=== PATIENT | male | born 1945 | race Caucasian/White ===

== ENCOUNTER 2019-05-29 23:53 | Emergency (ER) | payer OTHER ==
[2019-05-30] MEDS ORDERED: Sodium Chloride 0.9% 1,000 ML IV ONE (00:25)
[2019-05-30] MEDS: Sodium Chloride 0.9% 10 ML Syringe FLUSH PRN ×3 (00:30→01:14)
--- NOTE | 2019-05-30 00:31 | EDM.PDOC ---
ED HPI GENERAL MEDICAL PROBLEM - General Chief Complaint: General Stated Complaint: LEFT FLANK/ABDOMEN PAIN Time Seen by Provider: 05/30/19 00:24 Source of Information: Reports: Patient History Limitations: Reports: No Limitations - History of Present Illness INITIAL COMMENTS - FREE TEXT/NARRATIVE: Patient is a 74-year-old gentleman who presents to the emergency department this evening via private vehicle with a complaint of left flank and lower abdominal pain. Patient states discomfort began 24 hours ago, he was able to sleep last night but pain increased at 7 p.m. this evening and worsened. He decided to present to the emergency department. Patient does have a history of renal calculi about 7-8 years ago. Patient denies chest pain, fever, shortness of breath, upper respiratory symptoms, nausea, vomiting, diarrhea, bloody stool , testicular pain, or any trauma. 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 Onset: Sudden Onset Date: 05/29/19 Onset Time: 00:00 Duration: Hour(s): Location: Reports: Abdomen, Back Quality: Reports: Sharp Severity: Mild Improves with: Reports: None Worsens with: Reports: None Context: Denies: Lifting, Trauma Associated Symptoms: Reports: No Other Symptoms. Denies: Chest Pain, Fever/ Chills, Nausea/Vomiting, Shortness of Breath LEFT FLANK/LOWER ABDOMEN Pain Score (Numeric/FACES): 6 - Related Data Allergies Allergy/AdvReac Type Severity Reaction Status Date / Time procaine [From Novocain] Allergy Cannot Verified 05/29/19 23:57 Remember ED ROS GENERAL - Review of Systems Review Of Systems: Comprehensive ROS is negative, except as noted in HPI. Constitutional: Reports: No Symptoms HEENT: Reports: No Symptoms Respiratory: Reports: No Symptoms Cardiovascular: Reports: No Symptoms Endocrine: Reports: No Symptoms GI/Abdominal: Reports: Abdominal Pain. Denies: Black Stool, Bloody Stool, Constipation, Diarrhea, Nausea, Vomiting : Reports: Flank Pain. Denies: Dysuria, Hematuria, Urinary Retention Musculoskeletal: Reports: No Symptoms Skin: Reports: No Symptoms Neurological: Reports: No Symptoms Psychiatric: Reports: No Symptoms Hematologic/Lymphatic: Reports: No Symptoms Immunologic: Reports: No Symptoms ED EXAM, GENERAL - Physical Exam Exam: See Below Exam Limited By: No Limitations General Appearance: Alert, No Apparent Distress Eye Exam: Bilateral Eye: Normal Inspection Throat/Mouth: Normal Inspection, Normal Oropharynx, No Airway Compromise Head: Atraumatic, Normocephalic Neck: Normal Inspection Respiratory/Chest: No Respiratory Distress, Lungs Clear, Normal Breath Sounds, No Accessory Muscle Use, Chest Non-Tender Cardiovascular: Regular Rate, Rhythm, No Murmur GI/Abdominal: Normal Bowel Sounds, Soft, No Organomegaly, No Distention, No Abnormal Bruit, No Mass, Tender (Minimally tender suprapubic). No: Abnormal Bowel Sounds Back Exam: CVA Tenderness (L). No: CVA Tenderness (R), Paraspinal Tenderness Extremities: Normal Inspection, No Pedal Edema Neurological: Alert, Oriented, Normal Cognition Psychiatric: Normal Affect, Normal Mood Skin Exam: Warm, Dry, Intact, Normal Color, No Rash Lymphatic: No Adenopathy Course - Vital Signs Last Recorded V/S: Last Vital Signs Temp 97.2 F 05/30/19 00:04 Pulse 70 05/30/19 00:53 Resp 20 05/30/19 00:04 BP 182/72 H 05/30/19 00:53 Pulse Ox 95 05/30/19 00:04 - Orders/Labs/Meds Orders: Active Orders 24 hr Category Date Time Status Peripheral IV Care [RC] . DIRECTED Care 05/30/19 00:22 Active Abdomen Pelvis wo Cont [CT] Stat Exams 05/30/19 00:20 Ordered Sodium Chloride 0.9% @ 999 MLS/HR (1000ml) Med 05/30/19 00:25 Ordered Sodium Chloride 0.9% [Normal Saline] 1,000 ml IV .BOLUS Sodium Chloride 0.9% [Saline Flush] Med 05/30/19 00:22 Active 10 ml FLUSH Q8HR PRN Peripheral IV Insertion Adult [OM.PC] Routine Oth 05/30/19 00:05 Ordered Medication Orders Sodium Chloride (Normal Saline) 1,000 mls @ 999 mls/hr IV .BOLUS ONE Stop: 05/30/19 01:25 Last Admin: 05/30/19 00:29 Dose: 999 mls/hr Sodium Chloride (Saline Flush) 10 ml FLUSH Q8HR PRN PRN Reason: keep vein open Last Admin: 05/30/19 01:14 Dose: 10 ml Admin: 05/30/19 01:02 Dose: 10 ml Admin: 05/30/19 00:30 Dose: 10 ml Labs: Laboratory Tests 05/30/19 05/30/19 05/30/19 Range/Units 00:10 00:10 00:52 WBC 9.56 (5.00-10.00) 10^3/uL RBC 4.71 (4.50-6.00) 10^6/uL Hgb 14.9 (13.0-17.0) g/dL Hct 43.0 (40.0-52.0) % MCV 91.3 (82.0-92.0) fL MCH 31.6 H (27.0-31.0) pg MCHC 34.7 (32.0-36.0) g/dL RDW 13.4 (11.5-14.5) % Plt Count 235 (150-400) 10^3/uL MPV 9.3 (7.4-10.4) fL Immature Gran % (Auto) 0.1 (0.0-5.0) % Neut % (Auto) 78.2 H (50.0-70.0) % Lymph % (Auto) 15.3 L (20.0-40.0) % [place] % (Auto) 5.2 (2.0-8.0) % Eos % (Auto) 0.9 L (1.0-3.0) % Baso % (Auto) 0.3 (0.0-1.0) % Immature Gran # (Auto) 0.01 (0.00-0.50) 10^3/uL Neut # (Auto) 7.47 H (2.50-7.00) 10^3/uL Lymph # (Auto) 1.46 (1.00-4.00) 10^3/uL [place] # (Auto) 0.50 (0.10-0.80) 10^3/uL Eos # (Auto) 0.09 L (0.10-0.30) 10^3/uL Baso # (Auto) 0.03 (0.00-0.10) 10^3/uL Sodium 144 (136-145) mmol/L Potassium 4.1 (3.3-5.3) mmol/L Chloride 104 (98-115) mmol/L Carbon Dioxide 26.7 (21.0-32.0) mmol/L Anion Gap 17.4 H (5-15) mmol/L BUN 25 (6-25) mg/dL Creatinine 1.58 H (0.51-1.17) mg/dL Est Cr Clr Drug Dosing 45.70 mL/min Estimated GFR (MDRD) 43 mL/min Glucose 135 H (75 - 99) mg/dL Calcium 9.6 (8.7-10.3) mg/dL Total Bilirubin 0.7 (0.2-1.0) mg/dL AST 42 H (15-37) U/L ALT 72 (12-78) U/L Alkaline Phosphatase 79 (46-116) IU/L Total Protein 7.6 (6.4-8.2) g/dL Albumin 4.33 (3.00-4.80) g/dL Specimen Type . Urine Color Light yellow (YELLOW) Urine Appearance Clear (CLEAR) Urine pH 7.5 (5.0-9.0) Ur Specific [place] 1.020 (1.005-1.030) Urine Protein Negative (NEGATIVE) mg/dL Urine Glucose (UA) Negative (NEGATIVE) mg/dL Urine Ketones Negative (NEGATIVE) mg/dL Urine Occult Blood Large H (NEGATIVE) Urine Nitrite Negative (NEGATIVE) Urine Bilirubin Negative (NEGATIVE) Urine Urobilinogen 0.2 (0.2-1.0) E.U./dL Ur Leukocyte Esterase Negative (NEGATIVE) Urine RBC 75-100 H (0-5) /HPF Urine WBC 0-5 (0-5) /HPF Ur Epithelial Cells Rare /LPF Urine Bacteria Not seen (NONE TO FEW) /HPF Meds: Medications Generic Name Dose Route Start Last Admin Trade Name Eva PRN Reason Stop Dose Admin Sodium Chloride 1,000 mls @ 999 mls/hr 05/30/19 00:25 05/30/19 00:29 Normal Saline IV 05/30/19 01:25 999 mls/hr .BOLUS ONE Administration Sodium Chloride 10 ml 05/30/19 00:22 05/30/19 01:14 Saline Flush FLUSH 10 ml Q8HR PRN Administration keep vein open Discontinued Medications Generic Name Dose Route Start Last Admin Trade Name Freq PRN Reason Stop Dose Admin Ketorolac Tromethamine 30 mg 05/30/19 01:10 05/30/19 01:14 Toradol IVPUSH 05/30/19 01:11 30 mg ONETIME ONE Administration Ondansetron HCl 4 mg 05/30/19 00:58 05/30/19 01:02 Zofran IVPUSH 05/30/19 00:59 4 mg ONETIME ONE Administration - Radiology Interpretation Free Text/Narrative:: CT abdomen and pelvis without contrast shows proximal left ureteral 4 x 5 mm calculus, moderate left hydronephrosis. - Re-Assessments/Exams Free Text/Narrative Re-Assessment/Exam: 05/30/19 01:14 Patient afebrile, vital signs stable, pain relieved. Patient doctors at [facility] and is requesting to present there today to follow up with urology. Departure - Departure Time of Disposition: 01:16 Disposition: Home, Self-Care 01 Condition: Good Clinical Impression: Renal calculi Hydronephrosis Qualifiers: Hydronephrosis type: unspecified Qualified Code(s): N13.30 - Unspecified hydronephrosis - Discharge Information Instructions: Kidney Stones, [id number], Hydronephrosis Forms: ED Department Discharge Additional Instructions: Follow-up at the [facility] this morning as you requested. If unable to follow-up the [facility] return to emergency department for reevaluation. Sepsis Event Note - Evaluation Sepsis Screening Result: No Definite Risk - Focused Exam Vital Signs: Vital Signs Temp Pulse Resp BP Pulse Ox 05/30/19 00:53 70 182/72 H 05/30/19 00:34 75 189/84 H 05/30/19 00:04 97.2 F 73 20 179/83 H 95 Date Exam was Performed: 05/30/19 Time Exam was Performed: 01:16 - My Orders Last 24 Hours: My Active Orders 05/30/19 00:05 Peripheral IV Insertion Adult [OM.PC] Routine 05/30/19 00:20 Abdomen Pelvis wo Cont [CT] Stat 05/30/19 00:22 Peripheral IV Care [RC] . DIRECTED Sodium Chloride 0.9% [Saline Flush] 10 ml FLUSH Q8HR PRN 05/30/19 00:25 Sodium Chloride 0.9% @ 999 MLS/HR (1000ml) Sodium Chloride 0.9% [Normal Saline] 1,000 ml IV .BOLUS - Assessment/Plan Last 24 Hours: My Active Orders 05/30/19 00:05 Peripheral IV Insertion Adult [OM.PC] Routine 05/30/19 00:20 Abdomen Pelvis wo Cont [CT] Stat 05/30/19 00:22 Peripheral IV Care [RC] . DIRECTED Sodium Chloride 0.9% [Saline Flush] 10 ml FLUSH Q8HR PRN 05/30/19 00:25 Sodium Chloride 0.9% @ 999 MLS/HR (1000ml) Sodium Chloride 0.9% [Normal Saline] 1,000 ml IV .BOLUS Assessment:: Kidney stone Plan: Follow-up at the [facility] in [place] today as discussed.
[2019-05-30] MEDS ORDERED: Ondansetron 4 MG/2 ML SDV IVPUSH ONE (00:58)
[2019-05-30 01:02] LABS: ANION GAP 17.4 mmol/L (5-15)
[2019-05-30] MEDS ORDERED: Ketorolac 30 MG/ML SDV IVPUSH ONE (01:10)
--- NOTE | 2019-05-30 08:15 | CT ---
[id number] CT/CT Abdomen Pelvis WO IV EXAM: CT Abdomen Pelvis WO IV CLINICAL DATA: ABDOMEN/FLANK PAIN COMPARISON STUDY: None. FINDINGS: 3 mm calculus in the proximal left ureter (series 2 image 96 and series 4 image 59). Calculus results in mild to moderate upstream hydronephrosis and perinephric edema. Remainder of the left ureter is unremarkable. Multiple additional nonobstructing bilateral renal calculi measuring up to 3-4 mm. Overall stone burden is mild. No right-sided hydroureteronephrosis. Urinary bladder is unremarkable. Prostate gland is enlarged, exerting mass effect on the bladder base. Mesenteric edema in the upper abdomen extending left of midline with numerous visualized lymph nodes. One of these nodes appears partially calcified measuring approximately 14 x 13 x 12 mm. None of the other nodes are enlarged by size criteria. Liver, gallbladder, spleen, pancreas, and adrenal glands are unremarkable. No small bowel obstruction or inflammation. No colitis or diverticulitis. Appendix is normal. No free fluid or fluid collections. No pneumoperitoneum. Thoracolumbar spondylosis, including advanced L5-S1 degenerative disc disease. 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 IMPRESSION: 3 mm obstructing proximal left ureteral calculus with mild to moderate upstream hydroureteronephrosis. Additional nonobstructing bilateral renal calculi. Mesenteric edema in the upper abdomen with numerous small visualized lymph nodes, in addition to a mildly enlarged and calcified lymph node in the upper abdomen. Findings are nonspecific. Correlation with any prior imaging would be of benefit if available. Brayden Hernandez MD 05/30/19 0813 Thank you for allowing us to participate in the care of your patient.
== END 2019-05-30 01:33 | disposition home or self-care (01) ==
LOC: KA.ED 23:53
DX: N13.2 Hydronephrosis with renal and ureteral calculous obstruction (principal); Z88.8 Allergy status to other drugs, medicaments and biological substances
CPT/HCPCS: 74176; 80053; 81001; 85025; 96361; 96374; 96375; 99283; 99284-25; J1885; J2405; J7030

== ENCOUNTER 2019-11-23 20:16 | Emergency (ER) | payer MEDICARE, OTHER ==
[2019-11-23] MEDS ORDERED: Ketorolac 30 MG/ML SDV IVPUSH ONE (20:34)
[2019-11-23] MEDS ORDERED: Ketorolac 30 MG/ML SDV IM ONE (20:34)
[2019-11-23] MEDS ORDERED: Sodium Chloride 0.9% 1,000 ML IV ONE (20:34)
[2019-11-23] MEDS ORDERED: Sodium Chloride 0.9% 1,000 ML ONE (20:35)
[2019-11-23] MEDS ORDERED: Ketorolac 30 MG/ML SDV ONE (20:36)
--- NOTE | 2019-11-23 20:37 | EDM.PDOC ---
ED HPI GENERAL MEDICAL PROBLEM - General Chief Complaint: Flank Pain Stated Complaint: RIGHT FLANK PAIN Time Seen by Provider: 11/23/19 20:32 Source of Information: Reports: Patient History Limitations: Reports: No Limitations - History of Present Illness INITIAL COMMENTS - FREE TEXT/NARRATIVE: Roughly 1400 hrs. today, developed mild discomfort associated to his previous renal lithiasis. States this is steadily increased since then with no improvement with urination. Bowel movements normal today. Urine may be slightly increased due to intake. Denies any shortness of breath or chest pain. Denies any edema or claudication. Very similar to previous event last May although he states pain is may be slightly worse. Does not radiate through to the bladder nor groin but states general discomfort abdominally/pelvis. Onset: Today Duration: Hour(s): Location: Reports: Radiates to (Abdomen) Quality: Reports: Same as Previous Episode (Get out of your way) Severity: Moderate (How you been good) Improves with: Reports: Movement (All) Context: Reports: Other Associated Symptoms: Reports: Nausea/Vomiting Right Flank Pain Score (Numeric/FACES): 8 - Related Data Allergies Allergy/AdvReac Type Severity Reaction Status Date / Time procaine [From Novocain] Allergy Cannot Verified 11/23/19 20:22 Remember Past Medical History HEENT History: Reports: Impaired Vision Cardiovascular History: Reports: None Respiratory History: Reports: None Gastrointestinal History: Reports: None Genitourinary History: Reports: BPH, Renal Calculus, Other (See Below) (May 2019, referred [facility] from the OR for snaring and stenting of a 3 mm left ureteral calculus.) Musculoskeletal History: Reports: Gout Neurological History: Reports: Concussion Psychiatric History: Reports: None Endocrine/Metabolic History: Reports: None Oncologic (Cancer) History: Reports: Prostate Dermatologic History: Reports: Other (See Below) Other Dermatologic History: "Rash on stomach thats been there ten years" - Past Surgical History HEENT Surgical History: Reports: None Cardiovascular Surgical History: Reports: None Respiratory Surgical History: Reports: None GI Surgical History: Reports: None Male Surgical History: Reports: Prostate Biopsy Musculoskeletal Surgical History: Reports: None Social & Family History - Family History Family Medical History: Noncontributory - Caffeine Use Caffeine Use: Reports: None ED ROS GENERAL - Review of Systems Review Of Systems: Comprehensive ROS is negative, except as noted in HPI. ED EXAM, GENERAL - Physical Exam Exam: See Below Free Text/Narrative:: There is minimal, at least not sharp, pain to percussion of the flank region. Does not cause radiation anteriorly. General Appearance: Alert, WD/WN, Moderate Distress Ears: Normal External Exam, Normal Canal, Hearing Grossly Normal Head: Atraumatic Neck: Normal Inspection, Supple, Non-Tender, Full Range of Motion Respiratory/Chest: No Respiratory Distress, Lungs Clear, Normal Breath Sounds, No Accessory Muscle Use, Chest Non-Tender Cardiovascular: Normal Peripheral Pulses, Regular Rate, Rhythm, No Edema, No Gallop, No Murmur GI/Abdominal: Normal Bowel Sounds, Soft, Non-Tender, No Distention, No Mass (Male) Exam: Deferred Rectal (Males) Exam: Deferred Back Exam: Normal Inspection, Full Range of Motion Extremities: Normal Inspection, Normal Range of Motion, Non-Tender, No Pedal Edema, Normal Capillary Refill Neurological: Alert, Oriented, CN II-XII Intact, Normal Cognition, Normal Gait, Normal Reflexes, No Motor/Sensory Deficits Psychiatric: Normal Affect, Normal Mood Skin Exam: Warm, Dry, Intact, Normal Color, No Rash, Diaphoretic (Mildly diaphoretic, core, none exhibited to extremities) Course - Vital Signs Last Recorded V/S: Last Vital Signs Temp 36.2 C 11/23/19 20:30 Pulse 75 11/23/19 20:30 Resp 20 11/23/19 20:30 BP 187/89 H 11/23/19 20:30 Pulse Ox 95 11/23/19 20:30 - Orders/Labs/Meds Orders: Active Orders 24 hr Category Date Time Status Abdomen Pelvis wo Cont [CT] Stat Exams 11/23/19 20:39 Ordered Acetaminophen/HYDROcodone [[place] 325-5 MG] Med 11/23/19 21:57 Ordered 2 tab PO Q6H PRN Ondansetron [Zofran ODT] Med 11/23/19 21:59 Once 4 mg PO ONETIME ONE Medication Orders Hydrocodone Bitart/Acetaminophen ([place] 325-5 Mg) 2 tab PO Q6H PRN PRN Reason: Pain (moderate 4-6) Ondansetron HCl (Zofran Odt) 4 mg PO ONETIME ONE Stop: 11/23/19 22:00 Labs: Laboratory Tests 11/23/19 11/23/19 11/23/19 Range/Units 20:33 20:33 21:15 WBC 10.60 H (5.00-10.00) 10^3/uL RBC 4.44 L (4.50-6.00) 10^6/uL Hgb 14.2 (13.0-17.0) g/dL Hct 40.9 (40.0-52.0) % MCV 92.1 H (82.0-92.0) fL MCH 32.0 H (27.0-31.0) pg MCHC 34.7 (32.0-36.0) g/dL RDW 13.0 (11.5-14.5) % Plt Count 232 (150-400) 10^3/uL MPV 9.3 (7.4-10.4) fL Immature Gran % (Auto) 0.1 (0.0-5.0) % Neut % (Auto) 77.6 H (50.0-70.0) % Lymph % (Auto) 17.1 L (20.0-40.0) % [place] % (Auto) 4.8 (2.0-8.0) % Eos % (Auto) 0.2 L (1.0-3.0) % Baso % (Auto) 0.2 (0.0-1.0) % Neut # (Auto) 8.23 H (2.50-7.00) 10^3/uL Lymph # (Auto) 1.81 (1.00-4.00) 10^3/uL [place] # (Auto) 0.51 (0.10-0.80) 10^3/uL Eos # (Auto) 0.02 L (0.10-0.30) 10^3/uL Baso # (Auto) 0.02 (0.00-0.10) 10^3/uL Immature Gran # (Auto) 0.01 (0.00-0.50) 10^3/uL Sodium 139 (136-145) mmol/L Potassium 3.9 (3.3-5.3) mmol/L Chloride 103 (98-115) mmol/L Carbon Dioxide 22.2 (21.0-32.0) mmol/L Anion Gap 17.7 H (5-15) mmol/L BUN 26 H (6-25) mg/dL Creatinine 1.67 H (0.51-1.17) mg/dL Est Cr Clr Drug Dosing 42.60 mL/min Estimated GFR (MDRD) 41 mL/min Glucose 150 H (75 - 99) mg/dL Calcium 9.4 (8.7-10.3) mg/dL Specimen Type Urincc Urine Color Yellow (YELLOW) Urine Appearance Clear (CLEAR) Urine pH 6.0 (5.0-9.0) Ur Specific [place] 1.025 (1.005-1.030) Urine Protein Negative (NEGATIVE) mg/dL Urine Glucose (UA) Negative (NEGATIVE) mg/dL Urine Ketones 15 H (NEGATIVE) mg/dL Urine Occult Blood Trace-lysed H (NEGATIVE) Urine Nitrite Negative (NEGATIVE) Urine Bilirubin Negative (NEGATIVE) Urine Urobilinogen 0.2 (0.2-1.0) E.U./dL Ur Leukocyte Esterase Negative (NEGATIVE) Urine RBC 5-10 H (0-5) /HPF Urine WBC Not seen (0-5) /HPF Ur Epithelial Cells Rare /LPF Urine Bacteria Not seen (NONE TO FEW) /HPF Urine Mucus Rare H (NEGATIVE) /LPF Meds: Medications Generic Name Dose Route Start Last Admin Trade Name Freq PRN Reason Stop Dose Admin Hydrocodone Bitart/Acetaminophen 2 tab 11/23/19 21:57 [place] 325-5 Mg PO Q6H PRN Pain (moderate 4-6) Ondansetron HCl 4 mg 11/23/19 21:59 Zofran Odt PO 11/23/19 22:00 ONETIME ONE Discontinued Medications Generic Name Dose Route Start Last Admin Trade Name Freq PRN Reason Stop Dose Admin Sodium Chloride 1,000 mls @ 999 mls/hr 11/23/19 20:34 11/23/19 20:38 Normal Saline IV 11/23/19 21:34 999 mls/hr .BOLUS ONE Administration Sodium Chloride Confirm 11/23/19 20:35 11/23/19 20:51 Normal Saline Administered 11/23/19 20:36 Not Given Dose 1,000 mls @ as directed .ROUTE .STK-MED ONE Ketorolac Tromethamine 30 mg 11/23/19 20:34 11/23/19 20:39 Toradol IM 11/23/19 20:35 30 mg ONETIME ONE Administration Ketorolac Tromethamine 30 mg 11/23/19 20:34 11/23/19 20:38 Toradol IVPUSH 11/23/19 20:35 30 mg ONETIME ONE Administration Ketorolac Tromethamine Confirm 11/23/19 20:36 11/23/19 20:50 Toradol Administered 11/23/19 20:37 Not Given Dose 30 mg .ROUTE .STK-MED ONE Ondansetron HCl 4 mg 11/23/19 20:38 11/23/19 20:46 Zofran IVPUSH 11/23/19 20:39 4 mg ONETIME ONE Administration Tamsulosin HCl 0.4 mg 11/23/19 21:34 11/23/19 21:41 Flomax PO 11/23/19 21:35 0.4 mg ONETIME ONE Administration - Re-Assessments/Exams Free Text/Narrative Re-Assessment/Exam: 11/23/19 22:06 Improvement with fluids and IV/IM ketorolac. Offered contacting [facility], declined by Mr. Bowden [facility]. Departure - Departure Time of Disposition: 22:05 Disposition: Home, Self-Care 01 Condition: Good Clinical Impression: Renal calculi, Hydronephrosis, Elevated serum creatinine - Discharge Information *PRESCRIPTION DRUG MONITORING PROGRAM REVIEWED*: Not Applicable *COPY OF PRESCRIPTION DRUG MONITORING REPORT IN PATIENT [place]: Not Applicable Instructions: Kidney Stones, [id number] Referrals: Shruthi Sutton MD [Primary Care Provider] - Forms: ED Department Discharge Additional Instructions: [facility] as [facility] discussed. Hydrocodone 5/325 is being sent home with you you may take 1 every 4-6 hours for pain. Ondansetron 4 mg to be taken anytime after midnight for nausea as needed. Maintain good fluid intake. Copies of report will be provided for you to take with your [facility] appointment. Call or return if worsens. Likelihood of having this retrieved with snare and stenting is possible as that is what was needed in May 2019, performed at [facility]. Sepsis Event Note (ED) - Focused Exam Vital Signs: Vital Signs Temp Pulse Resp BP Pulse Ox 11/23/19 20:30 36.2 C 75 20 187/89 H 95 - Problem List & Annotations (1) Renal colic SNOMED Code(s): 1067931 Code(s): N23 - UNSPECIFIED RENAL COLIC Status: Acute Current Visit: Yes (2) Renal calculi SNOMED Code(s): 61819569 Code(s): N20.0 - CALCULUS OF KIDNEY Status: Acute Priority: High Current Visit: No Annotation/Comment:: Bilateral with multiple on RT. (3) Hydronephrosis SNOMED Code(s): 57000981 Code(s): N13.30 - UNSPECIFIED HYDRONEPHROSIS Status: Acute Current Visit: No Qualifiers: Hydronephrosis type: with ureteral calculous obstruction Qualified Code(s): N13.2 - Hydronephrosis with renal and ureteral calculous obstruction (4) Elevated serum creatinine SNOMED Code(s): 852410228 Code(s): R79.89 - OTHER SPECIFIED ABNORMAL FINDINGS OF BLOOD CHEMISTRY Status: Acute Priority: Medium Current Visit: Yes (5) Hematuria SNOMED Code(s): 98560701 Code(s): R31.9 - HEMATURIA, UNSPECIFIED Status: Acute Priority: Medium Current Visit: Yes Qualifiers: Hematuria type: unspecified type Qualified Code(s): R31.9 - Hematuria, unspecified - Problem List Review Problem List Initiated/Reviewed/Updated: Yes - My Orders Last 24 Hours: My Active Orders 11/23/19 20:39 Abdomen Pelvis wo Cont [CT] Stat 11/23/19 21:57 Acetaminophen/HYDROcodone [[place] 325-5 MG] 2 tab PO Q6H PRN 11/23/19 21:59 Ondansetron [Zofran ODT] 4 mg PO ONETIME ONE - Assessment/Plan Last 24 Hours: My Active Orders 11/23/19 20:39 Abdomen Pelvis wo Cont [CT] Stat 11/23/19 21:57 Acetaminophen/HYDROcodone [[place] 325-5 MG] 2 tab PO Q6H PRN 11/23/19 21:59 Ondansetron [Zofran ODT] 4 mg PO ONETIME ONE Plan: [facility] as we discussed. Hydrocodone 5/325 is being sent home with you you may take 1 every 4-6 hours for pain. Ondansetron 4 mg to be taken anytime after midnight for nausea as needed. Maintain good fluid intake. Copies of report will be provided for you to take with your [facility] appointment. Call or return if worsens. Likelihood of having this retrieved with snare and stenting is possible as that is what was needed in May 2019, performed at [facility].
[2019-11-23] MEDS ORDERED: Ondansetron 4 MG/2 ML SDV IVPUSH ONE (20:38)
[2019-11-23] MEDS ORDERED: Tamsulosin 0.4 MG Cap.ER PO ONE (21:34)
[2019-11-23 21:53] LABS: ANION GAP 17.7 mmol/L (5-15)
[2019-11-23] MEDS ORDERED: Acetaminophen/HYDROcodone 325-5 MG Tab PO PRN (21:57)
[2019-11-23] MEDS ORDERED: Ondansetron 4 MG Tab.DIS PO ONE (21:59)
--- NOTE | 2019-11-24 08:02 | CT ---
[id number] CT/CT Abdomen Pelvis WO IV Exam: CT Abdomen Pelvis WO IV Clinical Data: RENAL COLIC COMPARISON: CORRELATION IS MADE WITH MAY 30, 2019 FINDINGS: A 5 mm radiopaque calculus is seen in the mid right ureter on image 89, series 2 There is moderate right-sided hydronephrosis There is edema around the right kidney The pelvis shows no mass or adenopathy The appendix is normal The liver and spleen, aorta, adrenals, pancreas, gallbladder, and left kidney otherwise are overall unremarkable There is residual right-sided nephrolithiasis There is minimal left-sided nephrolithiasis IMPRESSION: 5 MM MID RIGHT URETERAL OBSTRUCTING URETERAL CALCULUS Teddy Haji MD 11/24/19 0800 Thank you for allowing us to participate in the care of your patient.
== END 2019-11-23 22:10 | disposition home or self-care (01) ==
LOC: KA.ED 20:16
DX: N13.2 Hydronephrosis with renal and ureteral calculous obstruction (principal); R79.89 Other specified abnormal findings of blood chemistry; Z88.4 Allergy status to anesthetic agent
CPT/HCPCS: 74176; 80048; 81001; 85025; 96361; 96372; 96374; 96375; 99284; A9270; J1885; J2405; J7030